=== PATIENT | male | born 1965 | race American Indian/Alaskan Native ===

== ENCOUNTER 2019-02-08 08:05 | Emergency (ER) | payer OTHER ==
[2019-02-08 08:38] VITALS: BP 129/71
[2019-02-08] MEDS ORDERED: FLEXERIL PO ONE (09:01)
[2019-02-08] MEDS ORDERED: DELTASONE PO ONE (09:01)
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
--- NOTE | 2019-02-08 09:21 | XRay Report ---
Lumbar spine: Low back pain. AP and lateral views are included. There is normal alignment. Vertebral height is well preserved as are the interspaces. Multilevel mild anterior traction spurs are identified from L2-L4. The apophyseal joints appear aligned and intact. Impression: Mild spondylosis. No acute findings.
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
== END 2019-02-08 09:58 | disposition home or self-care (01) ==
LOC: ED 08:05
DX: M54.5 Low back pain (principal); M25.562 Pain in left knee; M79.10 Myalgia, unspecified site; F17.200 Nicotine dependence, unspecified, uncomplicated; V49.09XA Driver injured in collision with other motor vehicles in nontraffic accident, initial encounter; Y93.89 Activity, other specified; Y92.488 Other paved roadways as the place of occurrence of the external cause; Y99.8 Other external cause status
CPT/HCPCS: 72100; 72131; 73562; 99284; J7512